=== PATIENT | female | born 1995 | race Caucasian/White ===

== ENCOUNTER 2017-10-03 04:22 | Emergency (ER) | payer BC ==
[~2017-10-03] VITALS: Ht 154.9 cm; Wt 59.0 kg
[2017-10-03] MEDS ORDERED: LACTATED RINGERS 1,000 ML IV ONE (04:35)
[2017-10-03 04:42] LABS: BILIRUBIN,URINE NEGATIVE (NEGATIVE); CLARITY,URINE CLEAR; COLOR,URINE YELLOW; GLUCOSE, URINE (UA) NEGATIVE (NEGATIVE); KETONES,URINE NEGATIVE (NEGATIVE); LEUKOCYTE ESTERASE ,URINE NEGATIVE (NEGATIVE); NITRITE,URINE NEGATIVE (NEGATIVE); PH,URINE 6 (5-9); PROTEIN,URINE NEGATIVE (NEGATIVE); UROBILINOGEN,URINE NORMAL (NORMAL)
--- NOTE | 2017-10-03 04:43 | ED Abdominal Pain ---
General Chief Complaint: Abdominal/GI Problems Stated Complaint: UPPER ABD PAIN Source of Information: Patient, Family (dad) Exam Limitations: No Limitations History of Present Illness Date Seen by Provider: Oct 03, 2017 Time Seen by Provider: 04:28 Initial Comments Patient presents to the ER by private conveyance with a chief complaint she was woke up tonight sleep with epigastric pain is about a 7 out of 10, sharp and nonradiating. Pain is worse with movement, pushing on her epigastric region or deep inspiration. She denies cough. She has some nausea but no vomiting. She says she thinks she has a history of irritable bowel syndrome no workup for inflammatory bowel disease. She is not having any fevers, chills, rash. She has not had any recent trauma. She is not on control. She does not smoke drink or use drugs. She does not have a history of pancreatitis, hyperlipidemia or alcohol use. She has had soft stools the last to 3 days but not watery diarrhea. She does not routinely use any medications. She does not have any other significant medical history. She has no history of abdominal surgeries. She has had her tonsils out. She follows with Dr. Villanueva's office. Allergies and Home Medications Allergies Coded Allergies: Penicillins (Verified Allergy, Unknown, 10/03/17) pseudoephedrine (Verified Allergy, Unknown, 10/03/17) Home Medications No Active Prescriptions or Reported Meds Patient Home Medication List Home Medication List Reviewed: Yes Review of Systems Constitutional: No chills, No diaphoresis EENTM: No Eye Pain, No Ear Pain Respiratory: Denies Cough, Denies Shortness of Air Cardiovascular: Denies Chest Pain, Denies Edema, Denies Palpitations, Denies Syncope Gastrointestinal: See HPI, Denies Abdomen Distended, Abdominal Pain, Denies Blood Streaked Stools, Denies Constipated, Diarrhea, Nausea, Denies Vomiting Genitourinary: Denies Burning, Denies Discharge, Denies Frequency Musculoskeletal: No back pain, No joint pain Skin: No pruritus, No rash Psychiatric/Neurological: Denies Headache, Denies Numbness Past Poomicv-Dabhkw-Fdidag Hx Patient Social History Alcohol Use: Denies Use Recreational Drug Use: No Smoking Status: Never a Smoker 2nd Hand Smoke Exposure: No Recent Foreign Travel: No Contact w/Someone Who Travel: No Physical Exam Vital Signs VS - Last 72 Hours, by Label 10/03/17 04:30 Temp 98.3 Pulse 84 Resp 16 B/P (MAP) 143/86 (105) Pulse Ox 99 O2 Delivery Room Air Capillary Refill : General Appearance: WD/WN, no apparent distress HEENT: PERRL/EOMI, pharynx normal Neck: full range of motion, normal inspection Respiratory: chest non-tender, lungs clear, normal breath sounds, no respiratory distress, no accessory muscle use Cardiovascular: normal peripheral pulses, regular rate, rhythm Gastrointestinal: normal bowel sounds, no organomegaly, guarding, No rebound, tenderness (epigastric region as well as mild tenderness to the right upper quadrant and left upper quadrant.), other (no Neely's sign or McBurney's point tenderness. Percussion to heel does cause the tenderness in her epigastric region to intensify.) Back: normal inspection, no CVA tenderness Neurologic/Psychiatric: alert, normal mood/affect, oriented x 3 Skin: normal color, warm/dry Progress/Results/Core Measures Results/Orders Lab Results Laboratory Tests Test 10/03/17 04:35 10/03/17 04:45 Range/Units Urine Color YELLOW Urine Clarity CLEAR Urine pH 6 5-9 Urine Specific [place] 1.010 L 1.016-1.022 Urine Protein NEGATIVE NEGATIVE Urine Glucose (UA) NEGATIVE NEGATIVE Urine Ketones NEGATIVE NEGATIVE Urine Nitrite NEGATIVE NEGATIVE Urine Bilirubin NEGATIVE NEGATIVE Urine Urobilinogen NORMAL NORMAL MG/DL Urine Leukocyte Esterase NEGATIVE NEGATIVE Urine RBC (Auto) NEGATIVE NEGATIVE Urine RBC NONE /HPF Urine WBC NONE /HPF Urine Squamous Epithelial Cells RARE /HPF Urine Crystals NONE /LPF Urine Bacteria NEGATIVE /HPF Urine Casts NONE /LPF Urine Mucus NEGATIVE /LPF Urine Culture Indicated NO Urine Test NEGATIVE NEGATIVE Urine Opiates Screen NEGATIVE NEGATIVE Urine Oxycodone Screen NEGATIVE NEGATIVE Urine Methadone Screen NEGATIVE NEGATIVE Urine Propoxyphene Screen NEGATIVE NEGATIVE Urine Barbiturates Screen NEGATIVE NEGATIVE Ur Tricyclic Antidepressants Screen NEGATIVE NEGATIVE Urine Phencyclidine Screen NEGATIVE NEGATIVE Urine Amphetamines Screen NEGATIVE NEGATIVE Urine Methamphetamines Screen NEGATIVE NEGATIVE Urine Benzodiazepines Screen NEGATIVE NEGATIVE Urine Cocaine Screen NEGATIVE NEGATIVE Urine Cannabinoids Screen NEGATIVE NEGATIVE White Blood Count 7.0 4.3-11.0 10^3/uL Red Blood Count 4.50 4.35-5.85 10^6/uL Hemoglobin 13.6 11.5-16.0 G/DL Hematocrit 39 35-52 % Mean Corpuscular Volume 87 80-99 FL Mean Corpuscular Hemoglobin 30 25-34 PG Mean Corpuscular Hemoglobin Concent 35 32-36 G/DL Red Cell Distribution Width 13.3 10.0-14.5 % Platelet Count 280 130-400 10^3/uL Mean Platelet Volume 8.4 7.4-10.4 FL Neutrophils (%) (Auto) 66 42-75 % Lymphocytes (%) (Auto) 24 12-44 % Monocytes (%) (Auto) 5 0-12 % Eosinophils (%) (Auto) 5 0-10 % Basophils (%) (Auto) 0 0-10 % Neutrophils # (Auto) 4.6 1.8-7.8 X 10^3 Lymphocytes # (Auto) 1.7 1.0-4.0 X 10^3 Monocytes # (Auto) 0.3 0.0-1.0 X 10^3 Eosinophils # (Auto) 0.3 0.0-0.3 10^3/uL Basophils # (Auto) 0.0 0.0-0.1 10^3/uL Erythrocyte Sedimentation Rate 3 0-20 MM/HR Sodium Level 139 135-145 MMOL/L Potassium Level 3.3 L 3.6-5.0 MMOL/L Chloride Level 106 98-107 MMOL/L Carbon Dioxide Level 24 21-32 MMOL/L Anion Gap 9 5-14 MMOL/L Blood Urea Nitrogen 17 7-18 MG/DL Creatinine 0.79 0.60-1.30 MG/DL Estimat Glomerular Filtration Rate > 60 BUN/Creatinine Ratio 22 Glucose Level 86 70-105 MG/DL Calcium Level 9.2 8.5-10.1 MG/DL Total Bilirubin 0.3 0.1-1.0 MG/DL Aspartate Amino Transf (AST/SGOT) 27 5-34 U/L Alanine Aminotransferase (ALT/SGPT) 26 0-55 U/L Alkaline Phosphatase 47 40-136 U/L C-Reactive Protein High Sensitivity 0.01 0.00-0.50 MG/DL Total Protein 6.9 6.4-8.2 GM/DL Albumin 4.4 3.2-4.5 GM/DL Lipase 35 8-78 U/L My Orders Orders - SIVAN MCCALLUM Cbc With Automated Diff (10/03/17 04:35) Comprehensive Metabolic Panel (10/03/17 04:35) Hs C Reactive Protein (10/03/17 04:35) Drug Screen Stat (Urine) (10/03/17 04:35) Hcg,Qualitative Urine (10/03/17 04:35) Lipase (10/03/17 04:35) Ua Culture If Indicated (10/03/17 04:35) Erythrocyte Sedimentation Rate (10/03/17 04:35) Chest 1 View, Ap/Pa Only (10/03/17 04:35) Saline Lock/Iv-Start (10/03/17 04:35) Lactated Ringers (Lr 1000 Ml Iv Solution (10/03/17 04:35) Ondansetron Injection (Zofran Injectio (10/03/17 04:45) Ketorolac Injection (Toradol Injection) (10/03/17 04:45) Medications Given in ED Current Medications Medications Dose Ordered Sig/Tracie Route Start Time Stop Time Status Last Admin Dose Admin Ketorolac Tromethamine 10 mg ONCE ONCE IVP 10/03/17 04:45 10/03/17 04:46 DC 10/03/17 04:47 10 MG Lactated Ringer's 1,000 ml @ 0 mls/hr Q0M ONCE IV 10/03/17 04:35 10/03/17 04:38 DC 10/03/17 04:47 0 MLS/HR Ondansetron HCl 4 mg ONCE ONCE IVP 10/03/17 04:45 10/03/17 04:46 DC 10/03/17 04:47 4 MG Vital Signs/I&O Vital Sign - Last 12Hours 10/03/17 04:30 Temp 98.3 Pulse 84 Resp 16 B/P (MAP) 143/86 (105) Pulse Ox 99 O2 Delivery Room Air Progress Note #1: Time: 04:44 Progress Note History of IBS versus IBD. We'll check a lipase to look at her pancreas. We'll check a urinalysis. We'll get a chest x-ray to make sure her lung bases are free of infiltrates. However the diagnosis is likely below her diaphragm. Progress Note #2: Time: 05:44 Progress Note The patient's pain was immensely helped with the ketorolac. She is not having any nausea. There is no evidence of inflammation, elevated white blood cell count, infection, kidney dysfunction, pancreatitis, liver inflammation or other dangerous pathology seen on laboratory work. We discussed risks, benefits and alternatives to doing further imaging and since her pain is improved we would like to try conservative approach by treating her irritable bowel syndrome possible constipation with some MiraLAX and fluids over the weekend and then follow up with her primary care physician next week. If he gets worse she can follow-up here in the ER. Stomach pain could also be in her differential however the description seems more sharp like distended bowel. She is not having any acid reflux, indigestion and we have not given her any antacids. Diagnostic Imaging Diagonstic Imaging: Xray Plain Films/CT/US/NM/MRI: chest Comments Unexplained opacity on the right lung field likely related to her sports bra. No other infiltrate or acute cardiopulmonary process noted. Reviewed: Reviewed by Me Departure Impression Impression: Primary Impression: Irritable bowel syndrome (IBS) Qualified Codes: K58.2 - Mixed irritable bowel syndrome Additional Impression: Abdominal pain, acute, epigastric Disposition: 01 HOME, SELF-CARE Condition: Improved Departure-Patient Inst. Decision time for Depature: 05:46 Referrals: ARACELY VILLANUEVA MD (PCP/Family) Primary Care Physician Patient Instructions: Irritable Bowel Syndrome (DC) Add. Discharge Instructions: Eat a high-fiber diet and for the next 3 or 4 days use 1-2 doses a day of MiraLAX, polyethylene glycol. Mix 1 capful in 6-8 ounces of whatever you want to drink. If your pain returns you can use Tylenol 1000 mg every 6 hours and or ibuprofen 800 mg every 8 hours. If this does not control your symptoms or you develop fever or other worrisome symptoms return to care. Follow up with your primary care physician in the next few weeks. All discharge instructions reviewed with patient and/or family. Voiced understanding. Scripts No Active Prescriptions or Reported Meds Work/School Note: Work Release Form Date Seen in the Emergency Department: Oct 03, 2017 Return to Work: Oct 04, 2017 Restrictions: No Restrictions Copy Copies To 1: ARACELY VILLANUEVA MD, TITUS J Oct 03, 2017 04:43
[2017-10-03] MEDS ORDERED: ONDANSETRON 4 MG/2 ML (SDV) Z0FRAN IVP ONE (04:45)
[2017-10-03] MEDS ORDERED: KETOROLAC 30 MG/ML VIAL IVP ONE (04:45)
[2017-10-03 04:58] LABS: AMPHETAMINE SCREEN, URINE NEGATIVE (NEGATIVE); BARBITURATE SCREEN URINE NEGATIVE (NEGATIVE); BENZODIAZEPINES SCREEN URINE NEGATIVE (NEGATIVE); CANNABINOID SCREEN, URINE NEGATIVE (NEGATIVE); COCAINE SCREEN URINE NEGATIVE (NEGATIVE); HCG,QUALITATIVE URINE NEGATIVE (NEGATIVE); METHADONE STAT NEGATIVE (NEGATIVE); METHAMPHETAMINE SCREEN URINE S NEGATIVE (NEGATIVE); OPIATE SCREEN URINE NEGATIVE (NEGATIVE); OXYCODONE STAT NEGATIVE (NEGATIVE); PROPOXYPHENE STAT NEGATIVE (NEGATIVE); TRICYCLIC ANTIDEPRESSANTS SCRE NEGATIVE (NEGATIVE)
[2017-10-03 05:04] LABS: BASOPHILS % (AUTO) 0 % (0-10); EOSINOPHILS # (AUTO) 0.3 10^3/uL (0.0-0.3); EOSINOPHILS % (AUTO) 5 % (0-10); HEMATOCRIT 39 % (35-52); HEMOGLOBIN 13.6 G/DL (11.5-16.0); LYMPHOCYTES # (AUTO) 1.7 X 10^3 (1.0-4.0); LYMPHOCYTES % (AUTO) 24 % (12-44); MEAN CORPUSCULAR HEMOGLOBIN 30 PG (25-34); MEAN CORPUSCULAR HGB CONC 35 G/DL (32-36); MEAN CORPUSCULAR VOLUME 87 FL (80-99); MEAN PLATELET VOLUME 8.4 FL (7.4-10.4); MONOCYTES # (AUTO) 0.3 X 10^3 (0.0-1.0); MONOCYTES % (AUTO) 5 % (0-12); NEUTROPHILS # (AUTO) 4.6 X 10^3 (1.8-7.8); NEUTROPHILS % (AUTO) 66 % (42-75); PLATELET COUNT 280 10^3/uL (130-400); RED CELL DISTRIBUTION WIDTH 13.3 % (10.0-14.5)
[2017-10-03 05:10] LABS: BACTERIA,URINE NEGATIVE /HPF; SQUAMOUS EPITHELIAL CELL,UR RARE /HPF
[2017-10-03 05:24] LABS: ALANINE AMINOTRANSFERASE 26 U/L (0-55); ALBUMIN 4.4 GM/DL (3.2-4.5); ALKALINE PHOSPHATASE 47 U/L (40-136); BILIRUBIN,TOTAL 0.3 MG/DL (0.1-1.0); BUN/CREATININE RATIO 22; CALCIUM 9.2 MG/DL (8.5-10.1); CARBON DIOXIDE 24 MMOL/L (21-32); CHLORIDE 106 MMOL/L (98-107); CREATININE SERUM 0.79 MG/DL (0.60-1.30); GFR ESTIMATED > 60; GLUCOSE 86 MG/DL (70-105); LIPASE 35 U/L (8-78); POTASSIUM 3.3 MMOL/L (3.6-5.0); SODIUM 139 MMOL/L (135-145); TOTAL PROTEIN 6.9 GM/DL (6.4-8.2)
[2017-10-03 05:25] LABS: ERYTHROCYTE SEDIMENTATION RATE 3 MM/HR (0-20)
[2017-10-03 05:55] VITALS: BP 107/74
--- NOTE | 2017-10-03 07:41 | Diagnostic Imaging Report ---
EXAMINATION: Chest radiograph, portable AP view. DATE: 10/03/2017 at 0506 hours. INDICATION: 22-year-old female, upper abdominal pain. COMPARISON: None. FINDINGS: Heart size and mediastinal contours are unremarkable. There is no identified pneumothorax. There is no large pleural effusion. There is no identified focal airspace consolidation. IMPRESSION: No identified acute cardiopulmonary abnormality. Dictated by: Dictated on workstation # [id number]
--- OUTSIDE RECORDS SUMMARY | 2017-10-05 03:33 | XMS REPORT | Continuity of Care Document ---
Author Author [facility] Organization [facility] Address Unknown Phone Unavailable Allergies Active Description Code Type Severity Reaction Onset Reported/Identified Relationship to Patient Clinical Status Yes No Allergy Information Available [id number] Drug Allergy Unknown N/A 2015 Medications There is no data. Problems Date Dx Coded Attending Type Code Diagnosis Diagnosed By 11/24/2015 MARIAMA JUSTIN DO, Ot R11.2 NAUSEA WITH VOMITING, UNSPECIFIED 11/24/2015 MARIAMA JUSTIN DO, Ot R11.2 NAUSEA WITH VOMITING, UNSPECIFIED 12/06/2015 MARIAMA JUSTIN DO Ot R11.2 NAUSEA WITH VOMITING, UNSPECIFIED 12/27/2015 COSTA MICHELLE MD Ot R11.2 NAUSEA WITH VOMITING, UNSPECIFIED 12/27/2015 COSTA MICHELLE MD Ot R14.0 ABDOMINAL DISTENSION (GASEOUS) 01/01/2016 COSTA MICHELLE MD Ot R11.2 NAUSEA WITH VOMITING, UNSPECIFIED 01/01/2016 COSTA MICHELLE MD Ot R14.0 ABDOMINAL DISTENSION (GASEOUS) 01/05/2016 COSTA MICHELLE MD Ot R11.2 NAUSEA WITH VOMITING, UNSPECIFIED 01/05/2016 COSTA MICHELLE MD Ot R14.0 ABDOMINAL DISTENSION (GASEOUS) 01/16/2016 COSTA MICHELLE MD Ot R10.11 RIGHT UPPER QUADRANT PAIN 01/16/2016 COSTA MICHELLE MD Ot R11.2 NAUSEA WITH VOMITING, UNSPECIFIED 01/16/2016 COSTA MICHELLE MD Ot R10.11 RIGHT UPPER QUADRANT PAIN 01/16/2016 COSTA MICHELLE MD Ot R11.2 NAUSEA WITH VOMITING, UNSPECIFIED 02/01/2016 COSTA MICHELLE MD Ot R10.11 RIGHT UPPER QUADRANT PAIN 02/01/2016 COSTA MICHELLE MD Ot R11.2 NAUSEA WITH VOMITING, UNSPECIFIED Procedures There is no data. Results There is no data. Encounters ACCT No. Visit Date/Time Discharge Status Pt. Type Provider Facility Loc./Unit Complaint [id number] 01/15/2016 09:48:00 01/15/2016 23:59:59 CLS Outpatient COSTA MICHELLE MD [facility] CARD [id number] 12/26/2015 08:58:00 12/26/2015 23:59:59 CLS Outpatient COSTA MICHELLE MD [facility] RAD [id number] 11/23/2015 07:06:00 11/23/2015 23:59:59 CLS Outpatient MARIAMA JUSTIN DO [facility] RAD
== END 2017-10-03 05:55 | disposition home or self-care (01) ==
LOC: EDUNIT# 04:22 → ER 04:26
DX: K58.9 Irritable bowel syndrome, unspecified (principal); Z88.0 Allergy status to penicillin; Z88.8 Allergy status to other drugs, medicaments and biological substances
CPT/HCPCS: 36415; 71045; 80053; 80306; 81000; 83690; 84703; 85025; 85652; 86141

== ENCOUNTER → 2021-11-08 | Outpatient (CLI) | payer BC, OTHER ==
--- NOTE | 2021-11-08 14:56 | Diagnostic Imaging Report ---
PROCEDURE: Pelvic comp/transvaginal sonogram. TECHNIQUE: Complete transabdominal and transvaginal pelvic ultrasound was performed. In addition, limited pelvic Doppler was performed. INDICATION: Irregular menses. FINDINGS: The uterus is anteverted measuring 7.1 x 2.6 x 4.4 cm. The endometrium is 8 mm in thickness. No myometrial mass is detected. The right ovary measures 2.9 x 1.5 x 2.9 cm and the left ovary measures 2.9 x 2.6 x 1.5 cm. Both ovaries contain small follicles. There is blood flow to both ovaries. No adnexal mass or free fluid is detected. IMPRESSION: Unremarkable transabdominal and transvaginal pelvic ultrasound. Dictated by: Dictated on workstation # [id number]
--- NOTE | 2021-11-08 15:03 | Diagnostic Imaging Report ---
PROCEDURE: US Thyroid. TECHNIQUE: Multiple Real-time grayscale images were obtained of the thyroid in various projections. INDICATION: Elevated thyroid antibodies. FINDINGS: The right lobe of the thyroid measures 5.1 x 1.5 x 1.2 cm and the left lobe measures 4.5 x 1.4 x 1.2 cm. The isthmus is 4 mm in thickness. Both lobes of the thyroid show homogeneous echotexture. No discrete mass is detected. IMPRESSION: Unremarkable thyroid ultrasound. No thyroid mass is detected. Dictated by: Dictated on workstation # [id number]
== END ==
LOC: RAD 10:15
PROVIDERS: ATTEND Nurse Practitioner Family
DX: N92.6 Irregular menstruation, unspecified (principal); R94.6 Abnormal results of thyroid function studies
CPT/HCPCS: 76536; 76830; 76856